=== PATIENT | male | born 1960 | race Hispanic/Latino ===

== ENCOUNTER → 2016-09-16 | Day surgery (SDC) | payer OTHER ==
[~2016-09-16] VITALS: Ht 162.6 cm; Wt 65.8 kg
--- NOTE | 2016-09-19 09:40 | Operative Report ---
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 After successful induction of general anesthesia the inguinal and surrounding areas were clipped prepped and draped in the usual sterile fashion. After injection of local anesthetic at the bottom of the umbilicus off the midline to the left, a 1 1/2 cm curved incision was made with a 15 blade, then deepened through Dick's fascia, sweeping off the rectus sheath. A horizontal 1-1/2 cm incision was made between the fibers, elevating these edges with 0 Vicryl stay sutures. Then retracting the muscle laterally, clearing off the posterior rectus sheath, this space is developed down the midline to the pubis sequentially, with an S retractor, a peanut dissector, then the balloon-camera device, inflating it 30-40 pumps while watching how it opens up the space, keeping the epigastrics up. The balloon is then replaced with a 10 mm Navarrete trocar, inserted, shortened, and secured with the stay sutures, gas turned on to 12 not 15 mm. Then two 5 mm trochars are inserted in the midline just below the camera, spaced by approximately 3 cm. Using mostly blunt dissection with peanuts to define the anatomy, first Irvin's ligament is swept off medially, checking the medial spaces, direct and femoral. There were no hernias there. Then briefly skipping over the area of the iliac fat pad, we developed the iliopubic tract out laterally to the iliac crest. Then we returned to the area of the fat pad where the hernia sac and the cord structures are adherent, coursing up into an attenuated deep ring. The cord structures form a triangle with the vas approaching medially and the main vessels approaching laterally, with the apex at the deep ring. There was some preperitoneal fat up inside in front that was dragged down and out, helping identify the distal lip of the hernia sac, which is then carefully peeled off the cord structures, especially the vas. The sac was full of omentum, we used an endoloop. The cord is also from the underlying iliac fat. Once the hernia sac is from the cord structures down to the base of this "triangle," a Parietex sided mesh with the suture, is marked and stuffed down the camera trocar, then unfurled in a systematic fashion, first with the smaller leaflet passing behind the cord structures, until the flap covers the epigastrics, covering the deep ring, then the larger leaflet is released from the suture, double-covering the smaller one, but also extends laterally out to the iliac crest, medially over Irvin's ligament, and superiorly towards the camera. There is a third part of the mesh, that covers the iliac fat pad like a skirt. The mesh was adjusted back and forth so that the keyhole is centered around the cord, lays flat and the edges are not curling. A trial run of letting the gas escape a little bit to see how the mesh would lay as the peritoneum comes back down is done, then when we're satisfied, we let rest of the gas escape, pulling out the instruments and trochars. The fascia is closed with a [id number] 0 Vicryl suture, tying the stay sutures on top. Then we closed the 3 skin incisions with interrupted 4-0 Monocryl, 3 for the umbilical, one each for the smaller ones, followed by Mastisol, Steri-Strips and Band-Aids. Overall estimated blood loss was minimal, lap and sponge counts were correct, wound expectancy was clean, IV fluids crystalloid, complications none, patient tolerated the procedure well, did not significantly herrera during extubation and was returned to the recovery room in satisfactory condition.
== END ==
LOC: STS 02:59
DX: K40.90 Unilateral inguinal hernia, without obstruction or gangrene, not specified as recurrent (principal); F17.200 Nicotine dependence, unspecified, uncomplicated
CPT/HCPCS: C1781; J0131; J0690; J2250

== ENCOUNTER 2018-04-21 19:49 | Emergency (ER) | payer OTHER ==
[~2018-04-21] VITALS: Ht 162.6 cm; Wt 65.8 kg
[2018-04-21 19:55] VITALS: BP 146/87
--- NOTE | 2018-04-21 20:06 | ED GENERAL ADULT ---
History of Present Illness General Chief Complaint: Hand or Wrist Injury Stated Complaint: "FISH HOOK IN RT PINK FINGER" Source: patient Exam Limitations: no limitations Vital Signs & Intake/Output Vital Signs & Intake/Output Vital Signs Date Time Temp Pulse Resp B/P B/P Pulse O2 O2 Flow FiO2 Mean Ox Delivery Rate 04/21 2059 Room Air 04/21 1955 97.1 77 18 146/87 98 Room Air ED Intake and Output 04/22 0000 04/21 1200 Intake Total 0 Output Total Balance 0 Intake, Oral 0 Patient 145 lb Weight Weight Reported by Patient Measurement Method Allergies Coded Allergies: aspirin (BLEEDING 09/15/16) Triage Note: PT FROM HOME C/O OF FISHING HOOK TO HIS RIGHT HAND 5TH DIGIT. PT STATES AROUND 1900 HE WAS FISHING AND THE HOOK BECAME CAUGHT. LAST TETANUS UNKNOWN, PER PT MAYBE MORE THAN 10 YEARS. PTS VSS. Triage Nurses Notes Reviewed? yes HPI: This is an otherwise healthy 57-year-old male presenting to the emergency department with a fishhook embedded in the fifth digit of his right hand. Patient states that he likes to fish on the weekends, in salt water. He accidentally punctured his right fifth digit with a fish hook. He was unable to remove the fishing hook and arrives for removal. Denies any other injuries. (Matheus Vergara MD) Reconcile Medications Doxycycline Hyclate 100 MG TABLET 2 TAB PO BID wound infection (Anny James MD) Past History Travel History Traveled to [place] past 21 day No Medical History Any Pertinent Medical History? see below for history Neurological: NONE EENT: NONE Cardiovascular: NONE Respiratory: NONE Gastrointestinal: NONE Hepatic: NONE Renal: NONE Musculoskeletal: NONE Psychiatric: NONE Endocrine: NONE Surgical History Surgical History: none Psychosocial History What is your primary language German Tobacco Use: Current Daily Use Daily Tobacco Use Amount/Type: =< 4 Cigarettes daily Family History Hx Contributory? No (Matheus Vergara MD) Review of Systems Review of Systems Constitutional: Reports: no symptoms. All Other Systems: Reviewed and Negative (Matheus Vergara MD) Physical Exam Physical Exam General Appearance: well developed/nourished, no apparent distress, comfortable Comments: Well-appearing middle-aged male, no acute distress. [place] embedded approximately 1 cm deep in the dorsal aspect of the lateral fifth digit, just proximal to the distal interphalangeal joint. Bleeding controlled upon arrival. Neurovascular intact distally. Remainder of exam is unremarkable with normal HEENT, cardiopulmonary, abdominal, neurologic, extremity exam. Skin is warm and dry. Core Measures ACS in differential dx? No CVA/TIA Diagnosis: No Sepsis Present: No Sepsis Focused Exam Completed? No (Matheus Vergara MD) Progress Differential Diagnoses I considered the following diagnoses in my evaluation of the patient: Appears to be embedded fishhook. Low suspicion for fracture. Doubt nonaccidental trauma. Doubt acute nerve injury at this time. Plan of Care: Current Medications Sig/Mayda Start time Last Medication Dose Stop Time Status Admin Lidocaine 10 ML ONCE ONE 04/21 2015 UNVr 04/21 (Lidocaine 2%) 04/21 Tetanus/Diphtheria 0.5 ML ONCE ONE 04/21 2015 UNVr 04/21 Toxoids Adsorbed 04/21 (Decavac) Plan for tetanus booster, digital block, fishhook removal, reassessment Digital block of the fifth digit of the right hand is performed with 2% lidocaine after cleansing the skin with chlorhexidine prep pad. A total of 3 mL 's of lidocaine is infiltrated. Good anesthesia is achieved. Fish hook is removed by cleansing the skin with chlorhexidine prep pad, incising a small cut over the ayala of the fishhook and pulling the fishhook free. Patient tolerates the procedure well and the fistula appears completely intact. Given that the patient was fishing and salt water, will prophylax with doxycycline to cover vibrio species. Patient is instructed to follow-up in 3 days for wound check and reassessment. Initial ED EKG: none (Matheus Vergara MD) Departure Departure Time of Disposition: 2041 Disposition: HOME OR SELF CARE Condition: Stable Clinical Impression Primary Impression: Fish hook injury of finger Referrals: Maurice Lopez DO (PCP/Family) Additional Instructions: Thank you for coming to [facility] today. I recommend that you soak your injured finger in clean water 3 times a day for 20 minutes. Please return to the emergency department or your primary care doctor in 3 days for wound assessment to make sure that you have not developed a infection. Also remember to take the antibiotics as I have prescribed them. Return to the emergency department if you have difficulty moving the finger or develop any fever, chills , nausea, or severe pain. Departure Forms: Customer Survey General Discharge Information Prescriptions: Current Visit Scripts Doxycycline Hyclate 2 TAB PO BID #20 TAB (Matheus Vergara MD) Resident Co-Sign Statement Statement: ED Attending supervision documentation- [] I saw and evaluated the patient. I have also reviewed all the pertinent lab results and diagnostic results. I agree with the findings and the plan of care as documented in the Resident's documentation. [x] I have reviewed the ED Record and agree with the Resident's documentation. [] Additions or exceptions (if any) to the Resident's note and plan are summarized below: [] (Anny James MD) Critical Care Note Critical Care Note Critical Care Time: non-applicable (Matheus Vergara MD)
[2018-04-21] MEDS ORDERED: DOXYCYCLINE HY100 M4 PO (20:44)
== END 2018-04-21 21:00 ==
LOC: ERH 19:49
DX: S61.246A Puncture wound with foreign body of right little finger without damage to nail, initial encounter (principal); F17.210 Nicotine dependence, cigarettes, uncomplicated; W45.8XXA Other foreign body or object entering through skin, initial encounter; Y93.89 Activity, other specified; Y92.9 Unspecified place or not applicable
CPT/HCPCS: 90471; J2001